=== PATIENT | female | born 1985 | race Caucasian/White ===

== ENCOUNTER 2017-10-28 08:47 | Emergency (ER) | payer OTHER | END 2017-10-28 09:46 | disposition home or self-care (01) | LOC: FTE 08:47 | DX: L08.9 Local infection of the skin and subcutaneous tissue, unspecified (principal) | CPT/HCPCS: 87070; 99283 ==

== ENCOUNTER 2018-09-30 13:27 | Emergency (ER) | payer OTHER | END 2018-09-30 14:03 | disposition home or self-care (01) | LOC: E/R 14:03 | DX: L98.9 Disorder of the skin and subcutaneous tissue, unspecified (principal); Z91.040 Latex allergy status | CPT/HCPCS: 99283 ==

== ENCOUNTER 2018-10-13 15:34 | Emergency (ER) | payer OTHER | END 2018-10-13 17:04 | disposition home or self-care (01) | LOC: FTE 17:04 | DX: L30.9 Dermatitis, unspecified (principal) | CPT/HCPCS: 99283; Z7502 ==